=== PATIENT | female | born 1980 | race Caucasian/White ===

== ENCOUNTER 2017-12-31 22:04 | Emergency (ER) | payer OTHER ==
[2017-12-31 22:04] VITALS: BP 139/99
--- NOTE | 2017-12-31 23:05 | PHYS DOC ---
Adult General Chief Complaint Chief Complaint: chest pain [facility] HPI Patient is a 37 year old female who presents with complaint of chest pain. Patient states that she has been having chest pain episodes over the past 3 weeks. Patient states that her pain started again earlier today and has been constant over the past several hours. Patient states her symptoms are similar to her previous episodes. Patient states that she recently had a CT scan as she was told by her doctor they were concerned that this may be related to her gallbladder. The patient states that the symptoms do seem to worsen when she eats. Patient denies any worsening symptoms with exertion. Patient does not have shortness of breath. Patient states that the pain radiates to her right shoulder and patient also had associated bilateral tingling in her upper extremities. Denies any history of known cardiac disease. Patient states that her pain has nearly resolved at this time. Patient denies pain in her abdomen. Patient does admit she has been under a significant amount stress over the past few months mostly related with her work. Review of Systems Review of Systems Constitutional: Denies fever or chills [] Eyes: Denies change in visual acuity, redness, or eye pain [] HENT: Denies nasal congestion or sore throat [] Respiratory: Denies cough or shortness of breath [] Cardiovascular: No additional information not addressed in HPI [] GI: Denies abdominal pain, nausea, vomiting, bloody stools or diarrhea [] : Denies dysuria or hematuria [] Musculoskeletal: Denies back pain or joint pain [] Integument: Denies rash or skin lesions [] Neurologic: Denies headache, focal weakness or sensory changes [] Endocrine: Denies polyuria or polydipsia [] All other systems were reviewed and found to be within normal limits, except as documented in this note. Allergies Allergies No known drug allergies Physical Exam Physical Exam Constitutional: Well developed, well nourished, no acute distress, non-toxic appearance. [] HENT: Normocephalic, atraumatic, bilateral external ears normal, oropharynx moist, no oral exudates, nose normal. [] Eyes: PERRLA, EOMI, conjunctiva normal, no discharge. [] Neck: Normal range of motion, no tenderness, supple, no stridor. [] Cardiovascular:Heart rate regular rhythm, no murmur [] Lungs & Thorax: Bilateral breath sounds clear to auscultation [] Abdomen: Bowel sounds normal, soft, no tenderness, no masses, no pulsatile masses. [] Skin: Warm, dry, no erythema, no rash. [] Back: No tenderness, no CVA tenderness. [] Extremities: No tenderness, no cyanosis, no clubbing, ROM intact, no edema. [] Neurologic: Alert and oriented X 3, normal motor function, normal sensory function, no focal deficits noted. [] Current Patient Data Vital Signs Vital signs were reviewed and are stable. Lab Results Laboratory Tests Test 12/31/17 23:10 12/31/17 23:25 Urine Collection Type Unknown Urine Color Yellow Urine Clarity Clear Urine pH 6.5 Urine Specific Hutchinson 1.010 Urine Protein Neg Urine Glucose (UA) Neg mg/dL Urine Ketones (Stick) Neg mg/dL Urine Blood Neg Urine Nitrite Neg Urine Bilirubin Neg Urine Urobilinogen Dipstick 0.2 mg/dL Urine Leukocyte Esterase Neg Urine RBC 0 /HPF Urine WBC Occ /HPF Urine Squamous Epithelial Cells Occ /LPF Urine Bacteria 0 /HPF Urine Test Negative White Blood Count 6.3 x10^3/uL Red Blood Count 4.67 x10^6/uL Hemoglobin 13.8 g/dL Hematocrit 40.5 % Mean Corpuscular Volume 87 fL Mean Corpuscular Hemoglobin 30 pg Mean Corpuscular Hemoglobin Concent 34 g/dL Red Cell Distribution Width 13.6 % Platelet Count 207 x10^3/uL Neutrophils (%) (Auto) 57 % Lymphocytes (%) (Auto) 33 % Monocytes (%) (Auto) 8 % Eosinophils (%) (Auto) 2 % Basophils (%) (Auto) 0 % Neutrophils # (Auto) 3.6 x10^3uL Lymphocytes # (Auto) 2.1 x10^3/uL Monocytes # (Auto) 0.5 x10^3/uL Eosinophils # (Auto) 0.1 x10^3/uL Basophils # (Auto) 0.0 x10^3/uL Sodium Level 142 mmol/L Potassium Level 3.6 mmol/L Chloride Level 105 mmol/L Carbon Dioxide Level 31 mmol/L Anion Gap 6 Blood Urea Nitrogen 9 mg/dL Creatinine 0.7 mg/dL Estimated GFR (Cockcroft-Gault) 93.2 BUN/Creatinine Ratio 13 Glucose Level 92 mg/dL Calcium Level 8.3 mg/dL Magnesium Level 2.1 mg/dL Total Bilirubin 0.4 mg/dL Aspartate Amino Transf (AST/SGOT) 23 U/L Alanine Aminotransferase (ALT/SGPT) 33 U/L Alkaline Phosphatase 84 U/L Creatine Kinase 49 U/L Creatine Kinase MB (Mass) < 0.5 ng/mL Creatine Kinase MB Relative Index 1.0 % Troponin I Quantitative < 0.017 ng/mL Total Protein 7.4 g/dL Albumin 4.0 g/dL Albumin/Globulin Ratio 1.2 Lipase 249 U/L EKG EKG Interpreted by me: Heart rate 63, sinus rhythm, normal intervals, normal axis, no acute ST/T-wave abnormalities present[] Radiology/Procedures Radiology/Procedures Two-view chest x-ray interpreted by me: No infiltrate, no effusions, normal cardiac silhouette[] Course & Med Decision Making Course & Med Decision Making Pertinent Labs and Imaging studies reviewed. (See chart for details) Patient's symptoms are atypical for cardiac chest pain. Given the presence of chest pain symptoms greater than 6 hours, once of cardiac enzymes was obtained which showed no abnormalities. EKG was normal. I suspect that the patient's symptoms may be GI related. The patient is currently following outpatient for potential GI source of symptoms. Advised that she continue with this outpatient workup as scheduled. Recommended the patient return to emergency department for any worsening symptoms. Patient voiced understanding and agreement with treatment plan. Dragon Disclaimer Dragon Disclaimer This electronic medical record was generated, in whole or in part, using a voice recognition dictation system. Departure Departure: Impression: Primary Impression: Atypical chest pain Disposition: HOME, SELF-CARE Condition: IMPROVED Patient Instructions: Chest Pain (Nonspecific) Additional Instructions: Follow-up the primary doctor in 3 days for reevaluation. It is recommended that he start your Prilosec medication as prescribed her previous visit as this may help reduce the frequency of her symptoms. Return to emergency department for any worsening symptoms. MILENA PAEZ MD Dec 31, 2017 23:05
[2017-12-31 23:48] LABS: BASO % 0 % (0-3); EOS # 0.1 x10^3/uL (0.0-0.7); EOS % 2 % (0-3); HEMATOCRIT 40.5 % (36.0-47.0); HEMOGLOBIN 13.8 g/dL (12.0-15.5); LYMPH # 2.1 x10^3/uL (1.0-4.8); LYMPH % 33 % (24-48); MEAN CORPUSCULAR HEMOGLOBIN 30 pg (25-35); MEAN CORPUSCULAR HGB CONC 34 g/dL (31-37); MEAN CORPUSCULAR VOLUME 87 fL (79-100); MONO # 0.5 x10^3/uL (0.0-1.1); MONO % 8 % (0-9); NEUT # 3.6 x10^3uL (1.8-7.7); NEUT % 57 % (31-73); PLATELET COUNT 207 x10^3/uL (140-400); RED BLOOD COUNT 4.67 x10^6/uL (3.50-5.40); RED CELL DISTRIBUTION WIDTH 13.6 % (11.5-14.5); WHITE BLOOD COUNT 6.3 x10^3/uL (4.0-11.0)
[2017-12-31 23:54] LABS: BACTERIA,URINE 0 /HPF (0-FEW); BILIRUBIN,URINE NEG (NEG); CLARITY,URINE CLEAR; COLOR,URINE YELLOW; GLUCOSE,URINE NEG (NEG); NITRITE,URINE NEG (NEG); RBC,URINE 0 /HPF (0-2); SQUAMOUS EPITHELIAL CELL,UR OCC /LPF; UROBILINOGEN,URINE 0.2 mg/dL (0.2 mg/dL); WBC,URINE OCC /HPF (0-4)
[2017-12-31 23:55] LABS: U PREG PATIENT NEGATIVE (NEG)
[2018-01-01 00:09] LABS: ALBUMIN/GLOBULIN RATIO 1.2 (1.0-1.7); ALK PHOS 84 U/L (46-116); ALT (SGPT) 33 U/L (14-59); ANION GAP 6 (6-14); AST (SGOT) 23 U/L (15-37); BLOOD UREA NITROGEN 9 mg/dL (7-20); BUN/CREATININE RATIO 13 (6-20); CALCIUM 8.3 mg/dL (8.5-10.1); CARBON DIOXIDE 31 mmol/L (21-32); CHLORIDE 105 mmol/L (98-107); CREATININE 0.7 mg/dL (0.6-1.0); GFR 93.2; GLUCOSE 92 mg/dL (70-99); LIPASE 249 U/L (73-393); MAGNESIUM 2.1 mg/dL (1.8-2.4); POTASSIUM 3.6 mmol/L (3.5-5.1); SODIUM 142 mmol/L (136-145); TOTAL BILIRUBIN 0.4 mg/dL (0.2-1.0); TOTAL PROTEIN 7.4 g/dL (6.4-8.2)
--- NOTE | 2018-01-01 06:28 | EKG ---
[address] [address] Test Date: 2017-12-31 Test Time: 22:20:16 Pat Name: ALE DAVIS Department: Room: Gender: F Community Development Officer: JAREK : 1980 Requested By: MILENA PAEZ Order Number: [id number] Reading MD: Measurements Intervals [place] Rate: 63 P: 0 HI: 162 QRS: 86 QRSD: 88 T: 52 QT: 408 QTc: 421 Interpretive Statements SINUS RHYTHM QRS(T) CONTOUR ABNORMALITY CONSIDER ANTEROLATERAL MYOCARDIAL DAMAGE POSSIBLY ABNORMAL ECG RI6.01 No previous ECG available for comparison
--- NOTE | 2018-01-01 07:58 | RAD ---
Chest radiograph 01/01/2018 12:02 AM INDICATION: Chest pain and pressure COMPARISON: Chest radiograph August 11, 2009 TECHNIQUE: Frontal and lateral views of the chest are provided. FINDINGS: The cardiomediastinal silhouette is within normal limits. There are no pleural effusions. There is no pulmonary vascular congestion. There is no pneumothorax. The lungs are clear. No significant osseous abnormality is identified. IMPRESSION: No acute cardiopulmonary process. Electronically signed by: Nazia Cleary MD (01/01/2018 7:54 AM) [facility]
== END 2018-01-01 00:42 | disposition home or self-care (01) ==
LOC: ER 22:04
DX: R07.89 Other chest pain (principal)
CPT/HCPCS: 36415; 71046; 80053; 81001; 81025; 82553; 83690; 83735; 84484; 85025; 93005; 99285-25

== ENCOUNTER → 2018-01-02 | Outpatient (CLI) | payer OTHER ==
[2017-12-31 22:04] VITALS: BP 139/99
--- NOTE | 2018-01-02 08:43 | RAD ---
EXAM: Abdomen sonogram. HISTORY: Pain, nausea and bloating. TECHNIQUE: Sonographic imaging of the abdomen was performed. COMPARISON: None. FINDINGS: The liver is normal in size. No focal hepatic lesion is seen. The liver parenchyma is echogenic relative to the right kidney. The common bile duct is normal in caliber, measuring 4 mm. The gallbladder, right kidney and visualized portions of the pancreas are unremarkable. The inferior vena cava is patent. The aorta is not assessed. IMPRESSION: 1. Slightly echogenic liver parenchyma. This can be due to imaging technique or slight steatosis. No suspicious hepatic lesion is seen. 2. Otherwise, unremarkable abdomen sonogram. Electronically signed by: Izzy Patel MD (01/02/2018 8:40 AM) [place] [id number]
== END | disposition home or self-care (01) ==
LOC: US 07:15
PROVIDERS: ATTEND Physician Assistant Medical
DX: M25.511 Pain in right shoulder (principal); R11.0 Nausea; R07.9 Chest pain, unspecified; R14.0 Abdominal distension (gaseous)
CPT/HCPCS: 76705

== ENCOUNTER → 2018-09-25 | Outpatient (CLI) | payer OTHER ==
[~2018-09-25] MED LIST: MECL25TA3 PO; ONDA8TAB15 PO
--- NOTE | 2018-09-25 16:33 | RAD ---
Pelvic ultrasound, 09/25/2018: HISTORY: Pelvic pain Transabdominal and transvaginal scans were obtained. An echogenic structure within the central uterine cavity is compatible with an IUD the central uterine echo complex is not thickened. The uterus measures 9.2 x 5.4 x 3.5 cm. The ovaries are of normal size. There is a 2 cm simple cyst in the right ovary. A 9 mm follicular cyst is present in the left ovary. There is blood flow in both ovaries. The adnexal regions are otherwise unremarkable. No free fluid is evident in the pelvis. IMPRESSION: 1. An IUD is in place in the central uterine cavity. 2. Small right ovarian cyst. 3. The pelvic ultrasound is otherwise unremarkable. Electronically signed by: Tim Silverman MD (09/25/2018 4:30 PM) [facility]
== END | disposition home or self-care (01) ==
LOC: US 14:38
PROVIDERS: ATTEND Obstetrics & Gynecology
DX: N83.201 Unspecified ovarian cyst, right side (principal); N83.02 Follicular cyst of left ovary; Z97.5 Presence of (intrauterine) contraceptive device
CPT/HCPCS: 76830; 76856

== ENCOUNTER 2018-10-24 08:09 | Emergency (ER) | payer OTHER ==
[~2018-10-24] VITALS: Ht 162.6 cm; Wt 86.2 kg
[2018-10-24] MEDS ORDERED: ONDANSETRON PF 4 MG/2 ML VIAL. IV ONE ×2 (08:30→09:45)
[2018-10-24] MEDS ORDERED: IV NORMAL SALINE 1,000ML 1,000 ML IV ONE (08:30)
--- NOTE | 2018-10-24 08:39 | PHYS DOC ---
Past History Past Medical History: High Cholesterol, Migraines, Other Past Surgical History: Tonsillectomy, Other Alcohol Use: Rarely Drug Use: None Adult General Chief Complaint Chief Complaint: NAUSEA/VOMITING/DIARRHEA HPI HPI 38-year-old female presents with dizziness and vomiting. Patient woke up at 4 a.m. with a feeling of dizziness. This was quickly followed by nausea and the desire to throw up. The patient was feeling normal yesterday. She has not had a fever or chills. She denies cough, chest pain, headache. She has had no trauma. She has vomited in the ED. Review of Systems Review of Systems Constitutional: Denies fever or chills [] Eyes: Denies change in visual acuity, redness, or eye pain [] HENT: Denies nasal congestion or sore throat [] Respiratory: Denies cough or shortness of breath [] Cardiovascular: No additional information not addressed in HPI [] GI: Nausea, Vomiting. Denies abdominal pain, bloody stools or diarrhea [] : Denies dysuria or hematuria [] Musculoskeletal: Denies back pain or joint pain [] Integument: Denies rash or skin lesions [] Neurologic: Dizziness. Denies headache, focal weakness or sensory changes [] Endocrine: Denies polyuria or polydipsia [] All other systems were reviewed and found to be within normal limits, except as documented in this note. Current Medications Current Medications Current Medications Medications (Trade) Dose Ordered Sig/Wilner Start Time Stop Time Status Last Admin Dose Admin Ondansetron HCl (Zofran) 4 mg 1X ONCE 10/24/18 08:30 10/24/18 08:31 UNV Sodium Chloride 1,000 ml @ 1,000 mls/hr 1X ONCE 10/24/18 08:30 10/24/18 09:29 UNV Allergies Allergies Allergies Coded Allergies Type Severity Reaction Last Updated Verified No Known Drug Allergies 10/24/18 No Physical Exam Physical Exam Constitutional: Well developed, well nourished, mild acute distress, non-toxic appearance. Vomiting.[] HENT: Normocephalic, atraumatic, bilateral external ears normal, oropharynx moist, no oral exudates, nose normal. [] Eyes: PERRLA, EOMI, conjunctiva normal, no discharge. [] Neck: Normal range of motion, no tenderness, supple, no stridor. [] Cardiovascular:Heart rate regular rhythm, no murmur [] Lungs & Thorax: Bilateral breath sounds clear to auscultation [] Abdomen: Bowel sounds normal, soft, no tenderness, no masses, no pulsatile masses. [] Skin: Warm, dry, no erythema, no rash. [] Back: No tenderness, no CVA tenderness. [] Extremities: No tenderness, no cyanosis, no clubbing, ROM intact, no edema. [] Neurologic: Alert and oriented X 3, normal motor function, normal sensory function, no focal deficits noted. [] Psychologic: Affect normal, judgement normal, mood normal. [] Current Patient Data Vital Signs Vital Signs Date Time Temp Pulse Resp B/P (MAP) Pulse Ox O2 Delivery O2 Flow Rate FiO2 10/24/18 08:23 97.7 66 20 98 Room Air EKG EKG [] Radiology/Procedures Radiology/Procedures [] Impressions: CT HEAD WO CONTRAST History: Dizziness since 4:00 AM Comparison: None. Technique: Noncontrast CT imaging was performed of the head. Exposure: One or more of the following individualized dose reduction techniques were utilized for this examination: 1. Automated exposure control 2. Adjustment of the mA and/or kV according to patient size 3. Use of iterative reconstruction technique. Findings: No acute extra-axial or parenchymal hemorrhage is identified. There is no significant intra-axial mass effect, midline shift, or extra-axial fluid collection. The coelho-white differentiation of the major vascular territories is preserved. The ventricles, sulci, and cisterns are within normal limits in size and configuration. The mastoid air cells and the visualized paranasal sinuses are aerated. No acute calvarial abnormality is identified. Impression: 1. No acute intracranial abnormality is identified. Electronically signed by: Zenaida Jackman MD (10/24/2018 9:31 AM) [id number] DICTATED AND SIGNED BY: ZENAIDA JACKMAN MD DATE: 10/24/18 0931 CC: DOMINGO OH DO; VICENTE BORRERO Course & Med Decision Making Course & Med Decision Making Pertinent Labs and Imaging studies reviewed. (See chart for details) Patient was given 8 mg of Zofran IV, 25 mg of Benadryl IV, and 12.5 milligrams of meclizine by mouth. The patient did fall asleep for a while. After she woke up, she stated her symptoms were significantly improved. She feels like she can be discharged home. I will discharge her with Zofran 8 mg ODT, and meclizine prescriptions. She will follow up with her PCP and discuss an ENT referral might be necessary in the future. She is stable for discharge at this time. [] Dragon Disclaimer Dragon Disclaimer This electronic medical record was generated, in whole or in part, using a voice recognition dictation system. Departure Departure: Impression: Primary Impression: Benign positional vertigo Disposition: HOME, SELF-CARE Condition: IMPROVED Referrals: VICENTE BORRERO (PCP) Patient Instructions: Vertigo, Cvec-qr-Haax Scripts Meclizine Hcl (MECLIZINE HCL) 25 Mg Tablet 1 TAB PO PRN TID PRN for DIZZINESS, #30 TAB Prov: DOMINGO OH DO 10/24/18 Ondansetron (ONDANSETRON ODT) 8 Mg Tab.rapdis 8 MG PO Q8HRS PRN for NAUSEA/VOMITING, #20 TAB Prov: DOMINGO OH DO 10/24/18 Problem Qualifiers Primary Impression: Benign positional vertigo Laterality: unspecified laterality Qualified Codes: H81.10 - Benign paroxysmal vertigo, unspecified ear DOMINGO OH DO Oct 24, 2018 08:39
[2018-10-24 08:53] LABS: BASO % 0 % (0-3); EOS # 0.1 x10^3/uL (0.0-0.7); EOS % 2 % (0-3); HEMATOCRIT 41.8 % (36.0-47.0); HEMOGLOBIN 14.5 g/dL (12.0-15.5); LYMPH # 1.7 x10^3/uL (1.0-4.8); LYMPH % 26 % (24-48); MEAN CORPUSCULAR HEMOGLOBIN 30 pg (25-35); MEAN CORPUSCULAR HGB CONC 35 g/dL (31-37); MEAN CORPUSCULAR VOLUME 86 fL (79-100); MONO # 0.4 x10^3/uL (0.0-1.1); MONO % 7 % (0-9); NEUT # 4.3 x10^3uL (1.8-7.7); NEUT % 65 % (31-73); PLATELET COUNT 203 x10^3/uL (140-400); RED BLOOD COUNT 4.86 x10^6/uL (3.50-5.40); RED CELL DISTRIBUTION WIDTH 13.1 % (11.5-14.5); WHITE BLOOD COUNT 6.6 x10^3/uL (4.0-11.0)
[2018-10-24 09:06] LABS: ALBUMIN 4.1 g/dL (3.4-5.0); ALBUMIN/GLOBULIN RATIO 1.2 (1.0-1.7); CREATININE 0.9 mg/dL (0.6-1.0); GFR 69.3; TOTAL BILIRUBIN 0.6 mg/dL (0.2-1.0); TOTAL PROTEIN 7.6 g/dL (6.4-8.2)
[2018-10-24] MEDS ORDERED: MECLIZINE 12.5 MG TABLET. PO STA (09:15)
--- NOTE | 2018-10-24 09:34 | RAD ---
CT HEAD WO CONTRAST History: Dizziness since 4:00 AM Comparison: None. Technique: Noncontrast CT imaging was performed of the head. Exposure: One or more of the following individualized dose reduction techniques were utilized for this examination: 1. Automated exposure control 2. Adjustment of the mA and/or kV according to patient size 3. Use of iterative reconstruction technique. Findings: No acute extra-axial or parenchymal hemorrhage is identified. There is no significant intra-axial mass effect, midline shift, or extra-axial fluid collection. The coelho-white differentiation of the major vascular territories is preserved. The ventricles, sulci, and cisterns are within normal limits in size and configuration. The mastoid air cells and the visualized paranasal sinuses are aerated. No acute calvarial abnormality is identified. Impression: 1. No acute intracranial abnormality is identified. Electronically signed by: Kiel Boone MD (10/24/2018 9:31 AM) [id number]
[2018-10-24] MEDS ORDERED: diphenhydrAMINE 50 MG/ML VIAL IVP ONE (10:00)
[2018-10-24] MEDS ORDERED: MECL25TA3 PO (10:56)
[2018-10-24] MEDS ORDERED: ONDA8TAB15 PO (10:56)
[2018-10-24 11:16] VITALS: BP 120/71
== END 2018-10-24 11:10 | disposition home or self-care (01) ==
LOC: ER 08:09
DX: H81.10 Benign paroxysmal vertigo, unspecified ear (principal); R11.2 Nausea with vomiting, unspecified; E78.00 Pure hypercholesterolemia, unspecified; G43.909 Migraine, unspecified, not intractable, without status migrainosus
CPT/HCPCS: 36415; 70450; 80053; 85025; 96361; 96374; 96375; 96376; 99284; J1200; J2405; J8597; J7030

== ENCOUNTER → 2019-06-16 | Outpatient (CLI) | payer OTHER ==
--- NOTE | 2019-06-16 16:46 | RAD ---
Study: FOOT LEFT 3V Indication: Pain after running. Comparison: None. Findings: No displaced fracture. No radiographic findings of stress injury seen throughout the left foot. No significant degenerative changes. Normal osseous mineralization. Impression: No acute fracture or radiographic findings of stress injury. Electronically signed by: DANILO JAMISON MD (06/16/2019 4:43 PM) [facility] [place]
== END | disposition home or self-care (01) ==
LOC: RAD 16:07
PROVIDERS: ATTEND Physician Assistant
DX: M79.672 Pain in left foot (principal)
CPT/HCPCS: 73630

== ENCOUNTER → 2020-06-27 | Outpatient (CLI) | payer OTHER ==
[~2020-06-27] MED LIST changes: +MECL-75 PO; -MECL25TA3 PO
--- NOTE | 2020-06-30 15:23 | RAD ---
BILATERAL SCREENING MAMMOGRAM, 3-D History: Routine screening. Comparison: 06/24/2019. Technique: MLO and CC digital tomosynthesis (3D) images obtained. Radiologist reviewed these images on dedicated workstation. Findings: Breast Tissue Density B : There are scattered areas of fibroglandular density. There are no dominant masses, suspicious microcalcifications, or architectural distortion. IMPRESSION: No mammographic evidence of malignancy. Recommend routine screening. BI-RADS category 1: Negative. The images were reviewed with computer-aided detection. Patient information is entered into reminder system with a target due date for the next screening mammogram. Mammography is the most sensitive method for finding small breast cancers, but it does not detect them all and is not a substitute for careful clinical examination. A negative mammogram does not negate a clinically suspicious finding and should not result in delay in biopsying a clinically suspicious abnormality. "Our facility is accredited by the [employer] Mammography Program." Electronically signed by: Jessee Clarke MD (06/30/2020 3:20 PM) [id number]
== END ==
LOC: MAMMO 08:21
PROVIDERS: ATTEND Obstetrics & Gynecology
DX: Z12.31 Encounter for screening mammogram for malignant neoplasm of breast (principal)
CPT/HCPCS: 77063; 77067

== ENCOUNTER → 2020-09-16 | Outpatient (CLI) | payer OTHER ==
--- NOTE | 2020-09-16 14:14 | RAD ---
XR KNEE 3 VIEWS_RT History: Reason: RIGHT KNEE PAIN / Spl. Instructions: / History: Comparison: None. Technique: 4 views of the right knee. Findings: Postsurgical features from right ACL repair with expected appearance of the distal femur and proximal tibial retention screws and tunnels. There is no evidence for fracture. Alignment is normal. No destructive osseous lesions are seen. Small tricompartmental osteophytes. No significant joint space narrowing. No suprapatellar effusion. Soft tissues are normal. Impression: 1. Mild degenerative changes in the setting of prior ACL repair. Electronically signed by: Primitivo Linares MD (09/16/2020 2:12 PM) [facility]
== END ==
LOC: DXRAD 09:02
PROVIDERS: ATTEND Physician Assistant Medical
DX: M17.11 Unilateral primary osteoarthritis, right knee (principal); M25.761 Osteophyte, right knee
CPT/HCPCS: 73562

== ENCOUNTER 2021-02-20 21:49 | Emergency (ER) | payer OTHER ==
[~2021-02-20] VITALS: Ht 162.6 cm; Wt 90.6 kg
--- NOTE | 2021-02-20 22:07 | PHYS DOC ---
Past History Past Medical History: High Cholesterol, Migraines, Other Past Surgical History: Tonsillectomy, Other Alcohol Use: Rarely Drug Use: None Adult General Chief Complaint Chief Complaint: CHEST WALL PAIN HPI HPI Patient is a 40-year-old female with a past medical history significant for hypercholesteremia and factor V Leiden who presents to the emergency department with a chief complaint of chest pain, worse when breathing, 5 out of 10, sharp in nature has been going on the last 3 days. States she is Covid positive as of Saturday and thinks she got it from her . Denies any recent traumas or travels, headache, fevers, pain or trouble swallowing, shortness of breath or dyspnea on exertion, orthopnea, abdominal pain, nausea, vomiting, diarrhea, dysuria, hematuria or blood in the stool. States she is eating and drinking no rmally. States he is making urine and stool normally for her. Review of Systems Review of Systems Review of systems otherwise unremarkable except noted in HPI Allergies Allergies Allergies Coded Allergies Type Severity Reaction Last Updated Verified No Known Drug Allergies 10/24/18 No Physical Exam Physical Exam Constitutional: Well developed, well nourished, no acute distress, non-toxic appearance. [] HENT: Normocephalic, atraumatic, oropharynx moist, no oral exudates, nose normal. [] Eyes: conjunctiva normal, no discharge. [] Neck: Normal range of motion, no tenderness, supple, no stridor. [] Cardiovascular:Heart rate regular rhythm, no murmur [] Lungs & Thorax: Bilateral breath sounds clear to auscultation [] Abdomen: soft, no tenderness, no masses, no pulsatile masses. [] Skin: Warm, dry, no erythema, no rash. [] Extremities: No tenderness, ROM intact, no edema. [] Neurologic: Alert and oriented X 3, no focal deficits noted. [] Psychologic: Affect normal, judgement normal, mood normal. [] EKG EKG [] Radiology/Procedures Radiology/Procedures [] INDICATION: Reason: Cough, congestions, covid + / Spl. Instructions: / History: COMPARISON: December 2017 FINDINGS: Single view of chest obtained. No definite focal airspace consolidation. Cardiac silhouette unremarkable IMPRESSION: * No focal airspace consolidation. Electronically signed by: Rod Baird MD (02/20/2021 10:32 PM) [id number] Heart Score C/O Chest Pain: No Risk Factors: Risk Factors: DM, Current or recent (<one month) smoker, HTN, HLP, family history of CAD, obesity. Risk Scores: Risk Factors: DM, Current or recent (<one month) smoker, HTN, HLP, family his tory of CAD, obesity. Course & Med Decision Making Course & Med Decision Making Patient is 40-year-old female who presents Covid positive with pleuritic chest pain for 3 days vital signs not concerning. Physical exam noted above. Given Tylenol, ibuprofen and Benadryl as well as cough syrup. EKG noted above with no STEMI. Troponin not concerning. Low risk Wells. PERC negative. Patient feeling better. Discussed all findings with patient and recommended symptomatic treatment at home. Advised to follow-up in the morning with primary care physician. Gave strict return cautions to the ED. Patient grateful, verbalized understanding agreement plan of discharge. Dragon Disclaimer Dragon Disclaimer This electronic medical record was generated, in whole or in part, using a voice recognition dictation system. Departure Departure: Impression: Primary Impression: Pleuritic chest pain Additional Impression: COVID Disposition: HOME / SELF CARE / HOMELESS Condition: GOOD Referrals: VICENTE BORRERO (PCP) Additional Instructions: You have been diagnosed with COVID-19. It is an infection caused by a new type of coronavirus. COVID-19 will cause cold-like or mild flu symptoms in most. It can cause more severe symptoms like problems breathing in some. There is no treatment for COVID-19. The body will clear the infection over time. Self-care will help to ease discomfort. Steps to Take: Self-Care Rest as needed. Healthy habits may help you feel better. Steps include: Choose healthy foods including fruits and vegetables. Drink water throughout the day. Get plenty of sleep each night. If you smoke, try to quit. It may ease breathing. Avoid alcohol. Keep Others Healthy The virus can spread to others. Droplets are released every time you sneeze or cough. The droplets can get into the mouth, nose, or eyes of people near you and lead to infection. To lower the chances of spreading COVID-19 to others: Stay at home until your doctor has said it is safe to leave. If you tested positive this will mean staying isolated until both of the following are true: At least 7 days have passed since the start of illness. You are free of fever for at least 72 hours without the use of medicine. During this time: - Avoid public areas, events, or transportation. Do not return to work or schoo l until your doctor has said it is safe to do so. - Call ahead if you need to go to a medical center. Let them know you may have COVID-19. It will help them guide you where to go. They may also ask you to wear a facemask when you come to the office. - If you call for emergency medical services, let them know you may have COVID- 19. While at home: - Try to avoid close contact with others. Stay about 6 feet away. - If possible, spend most of your time in a separate room from others. - Use a face mask if you will be in close contact with others such as sharing a room or vehicle. - Have someone wipe down common surfaces in the home. Use household email manager every day on areas like doorknobs, counters, or sinks. - Cough or sneeze into a tissue. Throw the tissue away right after use. If a tissue is not available, cough or sneeze into your elbow. - Wash your hands often. Wash them after sneezing or coughing. Use soap and water and wash for at least 20 seconds. Alcohol based hand street light lamp cleaner can be used if soap and water is not available. - Do not prepare food for others. Avoid sharing personal items like forks, spoons, or toothbrushes. - Avoid close contact with pets while you are sick. There is no evidence of the virus passing to pets. This is a safety step until more is known about this virus. Isolation can be frustrating. Social interaction can help. Keep in touch with friends and family through phone and tech options. You can still interact with others in your home, just keep a safe distance of about 6 feet. Follow-up: Your doctors office will check in with you to see if there are any changes in your health. You may be asked to keep track of symptoms to share with them. They will also let you know when you are clear to be in public again. Problems to Look Out For: Contact your doctor if your recovery is not going as you expect. Get emergency care if you have problems such as: - Trouble breathing - Nonstop chest pain or pressure - Changes in awareness, confusion, or problems waking - Lips or face have bluish color - Worsening of symptoms If you think you have an emergency, call for emergency medical services right away. As taken from [facility] Health Problem Qualifiers SUSAN MELGAR MD Feb 20, 2021 22:07
[2021-02-20 22:11] VITALS: BP 98/68
[2021-02-20] MEDS ORDERED: ACETAMINOPHEN 500 MG TABLET PO ONE (22:15)
[2021-02-20] MEDS ORDERED: IBUPROFEN 600 MG TABLET. PO ONE (22:15)
[2021-02-20] MEDS ORDERED: diphenhydrAMINE HCL 25 MG CAPSULE PO ONE (22:15)
[2021-02-20] MEDS ORDERED: guaiFENesin/CODEINE 100mg/10mg 5 ML LIQUID PO PRN (22:15)
--- NOTE | 2021-02-20 22:35 | RAD ---
INDICATION: Reason: Cough, congestions, covid + / Spl. Instructions: / History: COMPARISON: December 2017 FINDINGS: Single view of chest obtained. No definite focal airspace consolidation. Cardiac silhouette unremarkable IMPRESSION: * No focal airspace consolidation. Electronically signed by: Rod Baird MD (02/20/2021 10:32 PM) [id number]
--- NOTE | 2021-02-21 00:52 | EKG ---
[address] [address] Test Date: 2021-02-20 Test Time: 21:56:43 Pat Name: ALE DAVIS Department: Room: Gender: F Booking Prizer: : [id number] Requested By: SUSAN MELGAR Order Number: [id number] Reading MD: Measurements Intervals [place] Rate: 67 P: 0 MT: 154 QRS: 92 QRSD: 86 T: 41 QT: 374 QTc: 398 Interpretive Statements SINUS RHYTHM RIGHTWARD AXIS OTHERWISE NORMAL ECG RI6.02 No previous ECG available for comparison
== END 2021-02-20 23:23 | disposition home or self-care (01) ==
LOC: ER 21:49
DX: U07.1 COVID-19 (principal); R07.81 Pleurodynia; G43.909 Migraine, unspecified, not intractable, without status migrainosus; E78.00 Pure hypercholesterolemia, unspecified
CPT/HCPCS: 36415; 71045; 84484; 93005; 99285; Q0163

== ENCOUNTER → 2021-06-29 | Outpatient (CLI) | payer OTHER ==
--- NOTE | 2021-06-29 12:40 | RAD ---
BILATERAL DIGITAL SCREENING 2-D AND 3-D MAMMOGRAM INDICATION: Routine screening. COMPARISON: June 24, 2019 and June 27, 2020 Interpretation was made using CAD. FINDINGS: Breast Density: There are scattered areas of fibroglandular density. RIGHT BREAST: No suspicious masses, calcifications or areas of architectural distortion are seen. LEFT BREAST: No suspicious masses, calcifications or areas of architectural distortion are seen. IMPRESSION: 1. No imaging evidence of malignancy. ASSESSMENT: BI-RADS 1. Negative. RECOMMENDATION: Routine annual screening mammogram. The facility will notify the patient of the results via mail. Patient information will be entered int o the mammography reminder system with a target recall date for the next mammogram. A reminder letter will be generated by the facility. Electronically signed by: Kamila Figueroa MD (06/29/2021 12:37 PM) [id number]
== END ==
LOC: MAMMO 07:42
PROVIDERS: ATTEND Obstetrics & Gynecology
DX: Z12.31 Encounter for screening mammogram for malignant neoplasm of breast (principal)
CPT/HCPCS: 77063; 77067